=== PATIENT | female | born 1995 | race African-American/Black ===

== ENCOUNTER 2017-08-27 21:06 | Emergency (ER) | payer OTHER ==
[~2017-08-27] VITALS: Ht 165.1 cm; Wt 113.4 kg
[2017-08-27] MEDS ORDERED: NKM (21:15)
[2017-08-27] MEDS ORDERED: PSEUDOEPHEDRINE60 MG PO (21:23)
[2017-08-27] MEDS ORDERED: IBUPROFEN600 MG ORAL (21:23)
--- NOTE | 2017-08-27 21:24 | Emergency Room Report ---
History of Present Illness General Chief Complaint: Headache Source: Patient Present Illness HPI This 22-year-old female with no past medical history. She presents with 2 issue. First issue is headache with congestion and sneezing and coughing. Has been ongoing for last 2 days. No fever chills. Pain ranges from 7-9. Throbbing in nature. No fever chills but no nausea no vomiting. Her second issue is that whenever she ate dairy products she would have loose stool and gurgling in her stomach. No diarrhea. No fever chills. No pain. His been ongoing for a while but worse as she got older. Allergies: Uncoded Allergies: ALL CELLINS (Allergy, Unknown, 08/27/17) Patient History Past Medical History: see triage record, old chart reviewed Past Surgical History: none Pertinent Family History: none Social History: Denies: smoking Last Menstrual Period: 1 WK AGO Now: No Immunizations: other Reviewed Nursing Documentation: PMH: Agreed; PSxH: Agreed Nursing Documentation-PMH Past Medical History: No Stated History Review of Systems Eye: Denies: eye pain, blurred vision ENT: Reports: nose congestion; Denies: ear pain, throat swelling Respiratory: Reports: cough; Denies: shortness of breath Cardiovascular: Denies: chest pain, palpitations Gastrointestinal: Denies: abdominal pain, diarrhea, nausea, vomiting Musculoskeletal: Denies: back pain, joint pain Skin: Denies: rash Neurological: Reports: headache; Denies: numbness Endocrine: Denies: increased thirst, increased urine Hematologic/Lymphatic: Denies: easy bruising All Other Systems: negative except mentioned in HPI Physical Exam Vital Signs Date Time Temp Pulse Resp B/P (MAP) Pulse Ox O2 Delivery O2 Flow Rate FiO2 08/27/17 21:10 98.3 76 18 108/79 96 Room Air 98.2 vitals normal Sp02 EP Interpretation: reviewed, normal General Appearance: well appearing, no apparent distress, alert Head: normocephalic, atraumatic Eyes: bilateral eye PERRL, bilateral eye EOMI ENT: hearing grossly normal, normal pharynx, other - TM with air fluid bilaterally Neck: full range of motion, supple, no meningismus Respiratory: chest non-tender, lungs clear, normal breath sounds Cardiovascular #1: regular rate, rhythm, no murmur Gastrointestinal: normal bowel sounds, non tender, no mass, no organomegaly, no bruit, non-distended Musculoskeletal: back normal, gait/station normal, normal range of motion Psychiatric: mood/affect normal Skin: warm/dry Medical Decision Making Diagnostic Impression: Primary Impression: Sinus headache ER Course Patient with a sinus headache. No evidence of meningitis, sepsis, pneumonia. We'll discharge home. Last Vital Signs Date Time Temp Pulse Resp B/P (MAP) Pulse Ox O2 Delivery O2 Flow Rate FiO2 08/27/17 21:10 98.3 76 18 108/79 96 Room Air 98.2 Status: unchanged Disposition: HOME, SELF-CARE Condition: Stable Scripts Pseudoephedrine Hcl* (SUDAFED*) 60 Mg Tablet 60 MG PO Q6H, #20 TAB Prov: DARY COX M.D. 08/27/17 Ibuprofen* (MOTRIN*) 600 Mg Tablet 600 MG ORAL THREE TIMES A DAY, #30 TAB 0 Refills Prov: DARY COX M.D. 08/27/17 Patient Instructions: Sinus Headache Additional Instructions: Follow-up your doctor in 7 days. Return if worse. DARY COX M.D. August 27, 2017 21:23
[2017-08-27 21:25] VITALS: BP 112/77
[2017-08-27 21:30] VITALS: BP 112/77
== END 2017-08-27 21:30 | disposition home or self-care (01) ==
LOC: EMR 21:26
DX: R51 Headache (principal)
CPT/HCPCS: 99284

== ENCOUNTER 2018-01-17 13:49 | Emergency (ER) | payer OTHER ==
[~2018-01-17] VITALS: Ht 165.1 cm; Wt 113.4 kg
[~2018-01-17 13:49] MED LIST: IBUPROFEN600 MG ORAL; NKM; PSEUDOEPHEDRINE60 MG PO
[2018-01-17 14:35] VITALS: BP 125/81
--- NOTE | 2018-01-17 15:09 | Emergency Room Report ---
History of Present Illness General Chief Complaint: Nausea Source: Patient Present Illness HPI 22 YO female presents to the ED c/o nausea and intermittent abdominal pain. Denies constipation or diarrhea. denies fevers or chills. denies . denies urinary urgency, frequency, or hematuria. denies actually vomiting. denies recent travel or ill contacts. denies pain at this time. Allergies: Coded Allergies: PENICILLINS (Verified Allergy, Unknown, 01/17/18) Patient History Past Medical History: see triage record Past Surgical History: none Pertinent Family History: none Last Menstrual Period: last month Now: No Reviewed Nursing Documentation: PMH: Agreed; PSxH: Agreed Nursing Documentation-PMH Past Medical History: No Stated History Review of Systems All Other Systems: negative except mentioned in HPI Physical Exam Vital Signs Date Time Temp Pulse Resp B/P (MAP) Pulse Ox O2 Delivery O2 Flow Rate FiO2 01/17/18 14:23 98.8 65 18 123/82 98 Room Air 98.8 Sp02 EP Interpretation: reviewed, normal General Appearance: no apparent distress, alert, GCS 15, non-toxic Head: normocephalic, atraumatic Eyes: bilateral eye normal inspection, bilateral eye PERRL ENT: hearing grossly normal, normal voice Neck: full range of motion Respiratory: lungs clear, normal breath sounds, speaking full sentences Cardiovascular #1: regular rate, rhythm Gastrointestinal: normal bowel sounds, non tender, soft, non-distended Rectal: deferred Genitourinary: normal inspection, no CVA tenderness Musculoskeletal: back normal, gait/station normal, normal range of motion, non- tender Neurologic: alert, oriented x3, responsive, motor strength/tone normal, sensory intact, normal gait, speech normal, grossly normal Psychiatric: judgement/insight normal Skin: normal color, no rash, warm/dry, well hydrated Medical Decision Making PA Attestation Dr. zhou is my supervising Physician whom patient management has been discussed with. Diagnostic Impression: Primary Impression: Abdominal pain Qualified Codes: R10.13 - Epigastric pain Additional Impression: Nausea ER Course 22 YO female presents to the ED c/o nausea and intermittent abdominal pain. Denies constipation or diarrhea. denies fevers or chills. denies . denies urinary urgency, frequency, or hematuria. denies actually vomiting. denies recent travel or ill contacts. denies pain at this time. Ddx considered but are not limited to GE, colitis, acute appy, SBO, Cyclical Vomiting secondary to THC, * Vital signs: pt. is afebrile, H&PE are most consistent with GE most likely viral in etiology, no evidence to suggest acute abdomen on physical exam. will r/o . ORDERS: -None required at this time, the dx is clinical. -Urine Hcg-- pt. declines and does not want to wait. States she is really here because she needs a work note. ED INTERVENTIONS: -Pt. declines comfort medications. DISCHARGE: At this time pt. is stable for d/c to home. Will provide printed patient care instructions, and any necessary prescriptions. Care plan and follow up instructions have been discussed with the patient prior to discharge. Last Vital Signs Date Time Temp Pulse Resp B/P (MAP) Pulse Ox O2 Delivery O2 Flow Rate FiO2 01/17/18 14:23 98.8 65 18 123/82 98 Room Air 98.8 Disposition: HOME, SELF-CARE Condition: Stable Scripts Ondansetron (Zofran) 4 Mg Tablet 4 MG ORAL Q6H PRN for Nausea & Vomiting, #4 TAB Prov: Ynes Gallagher 01/17/18 Ranitidine Hcl* (ZANTAC*) 150 Mg Tablet 150 MG ORAL TWICE A DAY, #14 TAB Prov: Ynes Gallagher 01/17/18 Patient Instructions: Nausea, Adult Additional Instructions: Take medications as directed. You have declined Urine Testing for which is standard of care, you acknowledge the release of liability for any negative outcome associated with not having this testing performed. Your verbal understanding and agreement that this was your decision is noted. Follow up with a Primary Care Provider in 3-5 days, even if your symptoms have resolved. --Please review list of primary care clinics, if you do not already have a primary care provider Return sooner to ED if new symptoms occur, or current symptoms become worse. - Please note that this Emergency Department Report was dictated using [employer] employee technology software, occasionally this can lead to erroneous entry secondary to interpretation by the dictation equipment. Ynes Gallagher Jan 17, 2018 15:09
[2018-01-17] MEDS ORDERED: ZANTAC150 MG ORAL (15:10)
[2018-01-17] MEDS ORDERED: ZOFRAN4 M1 ORAL (15:10)
[2018-01-17 15:18] VITALS: BP 110/66
== END 2018-01-17 15:18 | disposition home or self-care (01) ==
LOC: EMR 14:33
DX: R10.13 Epigastric pain (principal); R11.0 Nausea; Z88.0 Allergy status to penicillin
CPT/HCPCS: 99282